=== PATIENT | male | born 1980 | race Caucasian/White ===

== ENCOUNTER 2024-10-08 16:23 | Emergency (ER) | payer OTHER, SELFPAY ==
[2024-10-08 16:26] VITALS: BP 162/94
--- NOTE | 2024-10-08 18:14 | ED.GENMED ---
History of Present Illness
General
Chief Complaint: Back Pain
Source: patient
Exam Limitations: none
Time Seen by Provider: 10/08/24 18:05
History of Present Illness
History of Present Illness:
See MDM
Past History
Past History
ED Past Medical History: None
ED Past Surgical History: Orthopedic
Social History
Tobacco: Non-smoker
Alcohol: None
Phy Exam
Physical Exam
Physical Exam:
See MDM
Course
Orders/Labs/Results
Orders:
Orders
10/08/24 18:13
Ketorolac [Toradol] 30 mg IM NOW STA
Prednisone [Deltasone] 50 mg PO NOW STA
Vital Signs
Initial and Last Documented VS:
Initial Vital Signs
Temp Pulse Resp BP Pulse Ox
98.9 F 74 18 162/94 100
10/08/24 16:26 10/08/24 16:26 10/08/24 16:26 10/08/24 16:26 10/08/24 16:26
Last Documented Vital Signs
Temp Pulse Resp BP Pulse Ox
98.9 F 74 18 162/94 100
10/08/24 16:26 10/08/24 16:26 10/08/24 16:26 10/08/24 16:26 10/08/24 16:26
MDM/Problems Addressed
Differential Diagnosis Includes:
HPI and MDM Narrative:
44-year-old male presenting for evaluation of right lower back pain. Patient felt a sudden onset of pain while he was trying to lift his son. He does have a prior history of herniated disc 10 years ago. He states this feels very similar. He
denies any radiation of pain into his leg. Pain is worse with certain movements such as going up or down the stairs. On exam, he is well-appearing nontoxic. He does have mild tenderness to his right paralumbar musculature. Negative straight leg
raise. Distal extremity otherwise neurovascularly intact. We discussed low yield for x-ray and patient does acknowledge. We discussed outpatient MRI. Will start steroids and NSAIDs given his prior history of herniated disc
Physical exam
General: Well appearing and non-toxic
HEENT: protecting airway
Neck: appears supple
CV: No evidence of cyanosis
Resp: No accessory muscle use
Back: Mild tenderness to right paralumbar musculature.
Abd: Non-distended
Extremities: No deformities. Negative straight leg raise on the right
Neuro: alert
Psych: Normal affect
Skin: Intact
Problems Addressed including Acute and Chronic Conditions affecting care:
1. Back pain
Acuity: acute
Prognosis: stable
Details: Given his prior history, discussed likelihood of herniated disc. Will start steroids and NSAIDs
Differential Diagnosis (but not limited to): Muscle spasm, herniated disc
Testing considered: Lumbar x-ray
Drug therapy (if applicable): OTC meds, please see d/c instruction regarding Rx drugs
Amount and/or Complexity of Data Reviewed
Clinical info obtained from: Patient
External data reviewed: N/A
Labs I independently reviewed (but not limited to): N/A
Radiology: N/A
Pulse Ox: not hypoxic
EKG independently reviewed: N/A
Public Health Program Manager: N/A
Critical Care: N/A
Risk of Complication:
Social Determinants of health: Good social support
Discussed with other providers: N/A
Escalation of Care includes Admit/Obs: After being observed in the Emergency Department, pt stable for discharge.
Occasional wrong word or 'sound a like' substitutions may have occurred due to the inherent limitations of voice recognition software. Read the chart carefully and recognize, using context, where substitutions have occurred.
*Critical Care Note
Total Time (30-74mins, 75-104mins- exclusive of procedures): Not Applicable
ED Attending Note
-
Portions of this chart may have been created with voice recognition software.� Occasional wrong word or��sound alike� substitutions may have occurred due to the inherent limitations of voice recognition software.
Discharge Plan
Departure
Patient Disposition: Home (Routine Discharge)
Date of Disposition: 10/08/24
Time of Disposition: 18:14
Patient with high blood pressure during this ER visit?: Yes
Discharge Problem:
Back pain
Instructions: Low Back Pain (DC), BLOOD PRESSURE
Prescriptions:
New
diclofenac sodium 75 mg tablet,delayed release (DR/EC)
75 mg PO BID PRN (Reason: Pain) Qty: 20 0RF
prednisone 10 mg tablet
See Rx Instructions .ROUTE .COMPLEX Qty: 45 0RF
Rx Instructions:
5 tabs day 1-3, 4 tabs day 4-6, 3 tabs day 7-9, 2 tabs day 10-12, 1 tab day 13-15
metaxalone 800 mg tablet
800 mg PO TID PRN (Reason: muscle pain) Qty: 14 0RF
No Action
cyclobenzaprine 10 MG tablet
10 mg PO TIDPRN PRN (Reason: muscles spasm/tightnessx) Qty: 30 0RF
naproxen sodium [Naprelan CR] 500 MG tablet, ER multiphase 24 hr
500 mg PO BID Qty: 30 0RF
Activity Restrictions/Additional Instructions:
Please return for any worsening symptoms.
You may return at any time if you have further concerns.
Given your prior history, I am suspicious about another herniated disc.
Please follow up with your doctor at the first available appointment, preferably this week.
Thank you for choosing [facility].
Interventions
Interventions:
*Risk Screen - Suicide Last Done: 10/08/24 16:26
*General Assessment Last Done: 10/08/24 16:26
*Neglect/Abuse Screening Last Done: 10/08/24 16:26
*ED- Fall Risk Assessment Last Done: 10/08/24 16:26
*ED COVID-19 Vaccine History Last Done: 10/08/24 16:26
ED-Musculoskeletal Assessment Last Done: 10/08/24 17:29
Discharge Date and Time
Print Language: MACEDONIAN
[2024-10-08] MEDS: DELTASONE 50 MG PO (18:24)
[2024-10-08] MEDS: TORADOL 30 MG IM (18:24)
== END 2024-10-08 18:28 | disposition home or self-care (01) ==
LOC: EMR 16:23
PROVIDERS: EMERGENCY PHYSICIAN Student in an Organized Health Care Education/Training Program; FAMILY PHYSICIAN Family Medicine
DX: M54.50 Low back pain, unspecified (principal); Z87.39 Personal history of other diseases of the musculoskeletal system and connective tissue
CPT/HCPCS: 96372; 99284